=== PATIENT | female | born 1935 | race Caucasian/White ===

== ENCOUNTER 2022-09-12 11:04 | Outpatient (REF) | payer MEDICARE, OTHER, SELFPAY ==
--- NOTE | ~2022-09-12 | XR_ITS ---
EXAMINATION: XR SINUSES CLINICAL INFORMATION: Sinusitis COMPARISON: None available at the time of this dictation. TECHNIQUE: Frontal, lateral and oblique views were obtained. FINDINGS: The maxillary sinuses are clear. There are no air-fluid levels. The frontal air cells are clear. Surrounding facial structures are unremarkable. XR/XR sinus min 3V IMPRESSION: Paranasal air sinuses clear.
== END 2022-09-12 11:05 | disposition home or self-care (01) ==
LOC: HO.XRAY 11:04
PROVIDERS: PCP Internal Medicine; Visit Provider Otolaryngology
DX: J32.9 Chronic sinusitis, unspecified (principal)
CPT/HCPCS: 70220